=== PATIENT | male | born 1975 | race Caucasian/White ===

== ENCOUNTER 2017-12-26 10:35 | Observation (INO) ==
[2017-12-26] MEDS ORDERED: amLODIPine 5 MG TABLET PO ONE (10:57)
[2017-12-26] MEDS ORDERED: Aspirin 81 MG TAB.CHEW PO ONE (10:59)
--- NOTE | 2017-12-26 11:02 | Emergency Department Note ---
Disposition Clinical Impression: Euokg-Ugejssgnh-Pgfrz (WPW) pattern Chest pain Qualifiers: Chest pain type: other chest pain Qualified Code(s): R07.89 - Other chest pain Disposition: Admitted As Inpatient Condition: Good Referrals: Louisa Joya CAR FERRY CAPTAIN [Primary Care Provider] - Forms: ED Satisfaction Letter Time of Disposition: 13:10 General Adult HPI - General Chief complaint: ED Chest Pain Stated complaint: CP Time Seen by Provider: 12/26/17 10:46 Source: patient, family Limitations: no limitations Nursing Notes Reviewed: Yes Vital Signs Reviewed: Yes - History of Present Illness HPI Narrative: Palpitations and chest pain that radiates to his left shoulder as well as tingling in his left shoulder and left lower extremity. Complaining of intermittent blurry vision in his left eye. Generalized weakness. Has had this previously however resolved. No symptoms at this time other than generalized weakness. Pain Scale: 4 - Related Data Home Medications Medication Instructions Recorded Confirmed amLODIPine [Norvasc] 10 mg PO DAILY 12/26/17 12/26/17 Allergies Allergy/AdvReac Type Severity Reaction Status Date / Time No Known Allergies Allergy Verified 12/26/17 10:51 All systems ED: reviewed and negative except as stated. Constitutional: Reports: weakness. Denies: fever, chills Cardiovascular: Reports: chest pain (Intermittent), palpitations Respiratory: Denies: cough, dyspnea Gastrointestinal: Denies: abdominal pain, nausea, vomiting, diarrhea Musculoskeletal: Denies: back pain, neck pain Integumentary: Denies: rash, abrasion Neurological: Reports: weakness. Denies: headache Past Medical History - Past Medical History Attestation: Yes The following information was validated with the patient. Source: patient Medical history: Reports: hypertension Psychiatric history: Reports: no psych history - Social History Smoking Status: Never smoker Smokeless Tobacco Status: No Alcohol use: Reports: none Drug use: Reports: none Physical Exam - General Limitations: no limitations General appearance: alert, in no apparent distress - Head Head exam: atraumatic, normocephalic, normal inspection - Eye Eye exam: Present: normal appearance, PERRL, EOMI - ENT ENT exam: normal exam, normal oropharynx, mucous membranes moist - Neck Neck exam: Present: normal inspection, full ROM, trachea midline - Chest Chest inspection: Present: normal inspection, symmetric chest wall rise - Respiratory Respiratory exam: Present: normal lung sounds bilaterally. Absent: respiratory distress, accessory muscle use - Cardiovascular Cardiovascular exam: Present: regular rate, normal rhythm, normal heart sounds - Abdominal Exam Abdominal exam: Present: soft, Non-Tender. Absent: tenderness, distention, guarding, rebound, rigidity, organomegaly - Extremities Exam Extremities exam: Present: normal inspection, full ROM, normal capillary refill. Absent: tenderness, pedal edema - Back Exam Back exam: Present: normal inspection, full ROM. Absent: tenderness - Neurological Exam Neurological exam: Present: alert, oriented X3, CN II-XII intact, normal gait. Absent: motor sensory deficit - Expanded Neurological Exam Patient oriented to: Present: person, place, time Coma Scale Eye Opening: Spontaneous Coma Scale Motor Response: Obeys Commands Coma Scale Verbal Response: Oriented Coma Scale Total: 15 - Skin Skin exam: Present: warm, dry, intact, normal color Course Course Narrative: Male patient presenting to the emergency department complaining of left-sided chest pain is intermittent. Started last night. Also having associated feelings his heart is racing. No history of this. Is on medication for his blood pressure not taken this in 2 days because he ran out. He was supposed to get this refilled today. He takes amlodipine. We will provide a he is here. He states that he is not having any pain at this time. He just feels tired. No coughs or shortness of breath. Has occasional blurry vision in his left eye associated with this. This denies that it is a curtain or blindness. He states that it is just a blurriness. Has been seen for this previously by his eye doctor. He is neurologically intact at this time. NIH is 0. He also complains of tingling sensations in his left arm and left leg occasionally. We will provide patient with aspirin at this time. 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 He has no history of this. We have no previous EKG to compare to. We will get a troponin and basic lab workup inclusive of a chest x-ray. I anticipate admission for a new diagnosed arrhythmia. Vital Signs Temperature 98.2 F 12/26/17 10:39 Pulse Rate 85 12/26/17 10:39 Respiratory Rate 18 12/26/17 10:39 Blood Pressure 162/103 12/26/17 10:39 O2 Sat by Pulse Oximetry 97 12/26/17 10:39 Temperature 98.2 F 12/26/17 10:39 Pulse Rate 85 12/26/17 13:30 Respiratory Rate 20 12/26/17 13:30 Blood Pressure 157/83 12/26/17 13:30 O2 Sat by Pulse Oximetry 95 12/26/17 13:30 Oxygen Delivery Oxygen Delivery Room Air Medical Decision Making - Medical Records Medical records reviewed: Yes I reviewed the patient's medical records. - Lab Data Lab results reviewed: Yes I reviewed the patient's lab results. Result diagrams: 12/26/17 11:09 12/26/17 11:09 Lab Results 12/26/17 12/26/17 12/26/17 Range/Units 10:47 11:09 11:09 WBC 6.8 (4.3-11.1) K/mcL RBC 4.97 (4.19-5.50) M/mcL Hgb 16.0 (12.9-16.9) g/dL Hct 44.8 (37.5-50.1) % MCV 90.1 (83.0-100.0) fL MCH 32.2 (28.0-33.3) pg MCHC 35.7 H (31.6-35.5) g/dL RDW 12.2 (11.5-14.5) % Plt Count 158 (140-400) K/mcL MPV 11.3 (9.4-12.4) fL Immature Gran % 0.4 (0-4) % Seg Neutrophils % 69.9 % Lymphocytes % 13.3 % Monocytes % 14.2 % Eosinophils % 1.8 % Basophils % 0.4 % Neutrophils # 4.8 (1.6-8.9) K/mcL Lymphocytes # 0.9 (0.6-4.6) K/mcL Monocytes # 1.0 (0.0-1.3) K/mcL Eosinophils # 0.1 (0.0-0.6) K/mcL Basophils # 0.0 (0.0-0.2) K/mcL Platelet Estimate Normal (Normal) Sodium 138 (136-145) mEq/L Potassium 3.9 (3.5-5.1) mEq/L Chloride 104 (98-107) mEq/L Carbon Dioxide 26 (23-29) mEq/L BUN 10 (6-20) mg/dL Creatinine 0.90 (0.70-1.30) mg/dL Est GFR ( Amer) > 60 (> 60) Est GFR (Non-Af Amer) > 60 (> 60) BUN/Creatinine Ratio 11 (6-26) Glucose 115 H (70-105) mg/dL Calculated Osmolality 286 (280-300) Calcium 9.9 (8.6-10.3) mg/dL Troponin I < 0.03 (< 0.04) ng/mL - Radiology Data Radiology results reviewed: Yes I reviewed the patient's radiology results. Chest X-Ray 12/26/17 10:59 IMPRESSION: No focal consolidation. No acute process. Stable exam. D/ / Dale oWod MD / Dale Wood MD Interpreting Provider: Dale Wood MD - EKG Data EKG #1 EKG attestation: Yes I reviewed and interpreted this EKG. EKG results narrative: Sinus rhythm at a rate 83. RI interval is 14. This is shortened. QRS duration is 154. QT is 387. QTC is 427. No signs of acute ischemia. 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
--- NOTE | 2017-12-26 11:59 | Emergency Department Note ---
Disposition Clinical Impression: Chest pain Qualifiers: Chest pain type: other chest pain Qualified Code(s): R07.89 - Other chest pain ; R07.8 - Other chest pain Disposition: Still a Patient Forms: ED Satisfaction Letter General Adult HPI - General Chief complaint: ED Chest Pain Stated complaint: CP Time Seen by Provider: 12/26/17 10:46 Source: patient, family Limitations: no limitations - History of Present Illness Pain Scale: 5 - Related Data Home Medications Medication Instructions Recorded Confirmed amLODIPine [Norvasc] 10 mg PO DAILY 12/26/17 12/26/17 Allergies Allergy/AdvReac Type Severity Reaction Status Date / Time No Known Allergies Allergy Verified 12/26/17 10:51 Past Medical History - Past Medical History Medical history: Reports: hypertension Psychiatric history: Reports: no psych history - Social History Smoking Status: Never smoker Smokeless Tobacco Status: No Alcohol use: Reports: none Drug use: Reports: none Physical Exam - General Limitations: no limitations General appearance: alert, in no apparent distress Course - Reevaluation(s) Reevaluation #1: ATTESTATION NOTE I examined this patient and my medical decision-making was reviewed with the Resident Physician, Gio Benites to the extent set forth below. I have personally performed a face to face evaluation on this patient. I have reviewed and agree with the care plan. Briefly: 42-year-old male hypertensive is on has not been has been out of his Norvasc for several days comes in sinus tachycardia with an EKG that suggest WPW or another preexcitation syndrome. Patient will be getting IV meds fluids labs chest x-ray with admission anticipated. Provided 30 minutes of critical care service for this patient. Admission disposition pending Time: 11:57 Vital Signs Temperature 98.2 F 12/26/17 10:39 Pulse Rate 85 12/26/17 10:39 Respiratory Rate 18 12/26/17 10:39 Blood Pressure 162/103 12/26/17 10:39 O2 Sat by Pulse Oximetry 97 12/26/17 10:39 Temperature 98.2 F 12/26/17 10:39 Pulse Rate 85 12/26/17 11:09 Respiratory Rate 20 12/26/17 11:09 Blood Pressure 160/110 12/26/17 11:09 O2 Sat by Pulse Oximetry 97 12/26/17 11:17 Oxygen Delivery Oxygen Delivery Room Air
[2017-12-26 12:00] LABS: BUN/Creatinine Ratio 11 (6-26); Blood Urea Nitrogen 10 mg/dL (6-20); Calcium 9.9 mg/dL (8.6-10.3); Carbon Dioxide 26 mEq/L (23-29); Chloride 104 mEq/L (98-107); Glucose 115 mg/dL (70-105); Osmolality,Calculated 286 (280-300); Potassium 3.9 mEq/L (3.5-5.1); Sodium 138 mEq/L (136-145); eGFR For African Americans > 60 (> 60); eGFR For Non-African Americans > 60 (> 60)
[2017-12-26 12:13] LABS: Basophils % 0.4 %; Eosinophils # 0.1 K/mcL (0.0-0.6); Eosinophils % 1.8 %; Hematocrit 44.8 % (37.5-50.1); Immature Granulocytes % 0.4 % (0-4); Lymphocytes # 0.9 K/mcL (0.6-4.6); Lymphocytes % 13.3 %; Mean Corpuscular HGB Conc 35.7 g/dL (31.6-35.5); Mean Corpuscular Hemoglobin 32.2 pg (28.0-33.3); Mean Corpuscular Volume 90.1 fL (83.0-100.0); Mean Platelet Volume 11.3 fL (9.4-12.4); Monocytes % 14.2 %; Platelet Count 158 K/mcL (140-400); Red Blood Count 4.97 M/mcL (4.19-5.50); Red Cell Distribution Width 12.2 % (11.5-14.5); Segmented Neutrophils % 69.9 %
[2017-12-26 12:34] LABS: Neutrophils # 4.8 K/mcL (1.6-8.9)
[2017-12-26 12:35] LABS: Platelet Estimate Normal (Normal)
--- NOTE | 2017-12-26 14:34 | Internal Med History&Physical ---
Date of Encounter: 12/26/17 Time of Encounter: 14:31 Assessment and Plan (1) Chest pain Current visit: Yes Status: Acute Patient with cardiac risk factors of hypertension obesity with episode of chest pain need further cardiac evaluation scheduled for exercise stress test in a.m. 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 Ruano is a 42 year old male Patient with history of hypertension, obesity, presented emergency room with the chest pain describes as pressure going up to his left shoulder associated n or with shortness of breath and some lightheadedness also patient said he been having recurrent palpitation for several years that he felt he was due to anxiety he will get a sudden onset of palpitation his heart pounding and suddenly goes back to normal when he gets the episode he gets lightheaded and short of breath but never had any syncope episode. 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 Past Med Surg Social Fam HX - Past Medical History Medical history: hypertension Psychiatric history: no psych history - Social History Smoking Status: Never smoker Smokeless Tobacco Status: No Alcohol use: none Drug use: none Internal Medicine - H&P: Meds amLODIPine [Norvasc] 10 mg PO DAILY 12/26/17 [History] 3 Allergy/AdvReac Type Severity Reaction Status Date / Time No Known Allergies Allergy Verified 04/09/18 10:51 All Systems PM: A 10-system review of systems was performed and is negative for pertinent findings except as documented above in the HPI. - Constitutional Constitutional: no chills, no fever(s), no night sweats - EENT Eyes: no change in vision, no discharge, no pain, no photophobia Ears: no ear discharge, no ear pain, no tinnitus Nose, mouth and throat: no dysphagia, no nasal discharge, no neck pain, no sore throat - Cardiovascular Cardiovascular ROS IM: chest pain, dyspnea on exertion - Respiratory Respiratory: dyspnea, dyspnea on exertion - Gastrointestinal Gastrointestinal: no abdominal pain, no diarrhea, no hematemesis, no hematochezia, no melena, no nausea, no vomiting - Musculoskeletal Musculoskeletal ROS IM: no numbness, no tingling - Integumentary Integumentary IM: no rash, no unusual bruising - Neurological Neurological ROS: no confusion, no convulsions, no focal weakness, no numbness, no tingling, no tremor(s) - Constitutional Vitals: Temp Pulse Resp BP Pulse Ox 98.2 F 87 20 145/93 95 12/26/17 10:39 12/26/17 14:04 12/26/17 14:04 12/26/17 14:04 12/26/17 14:04 - Head Head exam: Present: atraumatic, normocephalic - Eye Eye exam: Present: PERRL, conjuntiva pink, sclera anicteric Pupils: Present: PERRL - Neck Neck exam general surgery: Present: supple, trachea midline. Absent: lymphadenopathy - Respiratory Respiratory exam: Present: CTAB. Absent: accessory muscle use, rales, rhonchi, wheezes - Cardiovascular Cardiovascular exam: Present: RRR, +S1, +S2. Absent: diastolic murmur, gallop, rubs, systolic murmur - GI/Abdominal GI/Abdominal exam: Present: normal bowel sounds, soft, no peritoneal signs. Absent: distended, tenderness - Extremities Exam Extremities exam: Present: warm, radial pulses palpable and symmetrical. Absent : calf tenderness, cyanotic, pedal edema - Neurological Exam Neurological exam: Present: CN II-XII intact, oriented X3, no focal deficits. Absent: pronater drift, facial droop, speech deficit - Skin Skin exam: Present: dry, intact Internal Med - H&P Results - Labs CBC & Chem 7: 12/26/17 11:09 12/26/17 11:09 Labs: Short CBC 12/26/17 Range/Units 11:09 WBC 6.8 (4.3-11.1) K/mcL Hgb 16.0 (12.9-16.9) g/dL Hct 44.8 (37.5-50.1) % Plt Count 158 (140-400) K/mcL Neutrophils # 4.8 (1.6-8.9) K/mcL BMP 12/26/17 11:09 Sodium 138 Potassium 3.9 Chloride 104 Carbon Dioxide 26 BUN 10 Creatinine 0.90 Glucose 115 H Calcium 9.9 Cardiac Enzymes 12/26/17 Range/Units 10:47 Troponin I < 0.03 (< 0.04) ng/mL - Impressions ITS Impressions Chest X-Ray 12/26/17 10:59 IMPRESSION: No focal consolidation. No acute process. Stable exam. D/ / Dale Wood MD / Dale Wood MD Interpreting Provider: Dale Wood MD
[2017-12-26] MEDS ORDERED: traMADol 50 MG TABLET PO PRN (14:39)
[2017-12-26] MEDS ORDERED: Acetaminophen 325 MG TABLET PO PRN (14:39)
[2017-12-26] MEDS ORDERED: Naloxone 0.4 MG/ML INJ IVP PRN (14:39)
--- NOTE | 2017-12-26 15:24 | Cardiology Consult Note ---
<Ran Abarca - Last Filed: 12/26/17 15:36> Date of Encounter: 12/26/17 Time of Encounter: 15:21 Assessment and Plan (1) Urboi-Qazdsujmm-Inhlp (WPW) pattern Current Visit: Yes Status: Acute Symptoms of palpitations, chest pain, lightheadedness. Resolved on presentation. EKG significant for bundle of sonido consistent with WPW. Plan: - Continue to monitor patient - agree with current plan: Echo and exercise stress test - NPO after midnight - consider ablation (2) Chest pain Current Visit: Yes Status: Acute Symptoms resolved at this time Most likely due to abnormal rhythm Plan: - As stated above Qualifiers: Chest pain type: other chest pain Qualified Code(s): R07.89 - Other chest pain; R07.8 - Other chest pain Discussion w patient/family: The assessment and plan as outlined above was discussed with the patient and/or family members who expressed understanding and agreement. All questions were answered. Thank you for involving us in the care of your patient. Please call with any questions. History of Present Illness Consult date: 12/26/17 Requesting physician: Maria T Galicia Consult reason: REINA; WPW Chief complaint: REINA History of present illness: Mr. Ruano is a 42 year old male with PMHx of hypertension and regular alcohol consumption presents to the ED for complaints of REINA, palpitations, lightheadedness, and left-sided paresthisias that started at 00:30 this morning. The patient states he woke up from sleep with palpitations and then throughout the morning he became SOB and lightheaded. He then intermittently felt tingling sensations in his left and right extremity. The patient states he has had similar symptoms before and thought they were panic attacks, however this time symptoms were more intense. He currently takes 10mg amilodipine for his blood pressure. Plan at this time is to order a stress test and echocardiogram. NPO at midnight. Patient may undergo ablation tomorrow if other testing is normal. Patient drinks 8-10 cans of beer daily. Past Med Surg Social Fam HX - Past Medical History Medical history: hypertension Psychiatric history: no psych history - Social History Smoking Status: Never smoker Smokeless Tobacco Status: No Alcohol use: none Drug use: none Medications and Allergies amLODIPine [Norvasc] 10 mg PO DAILY 12/26/17 [History] 3 Allergy/AdvReac Type Severity Reaction Status Date / Time No Known Allergies Allergy Verified 12/26/17 10:51 All Systems Review: The remainder of the systems were reviewed and are negative - EENT Eyes: blurred vision (resolved) - Cardiovascular Cardiovascular: diaphoresis, lightheadedness, palpitations - Respiratory Respiratory: dyspnea - Gastrointestinal Gastrointestinal: no nausea Physical Examination Vital Signs, Last 4 Hours Pulse Resp BP Pulse Ox 12/26/17 14:04 87 20 145/93 95 12/26/17 13:30 85 20 157/83 95 12/26/17 13:00 85 20 133/79 96 12/26/17 12:30 83 20 142/96 95 12/26/17 12:08 77 20 135/88 92 12/26/17 11:30 91 20 146/105 94 General: Conversant, No Apparent Distress HEENT: Atraumatic, Normocephaly, Mucus Membranes Moist Neck: No JVD, Normal carotid pulses Cardiac: Reg Rate and Rhythm, Normal S1 and S2, No Murmur Lungs: Normal Breath Sounds, No Wheeze, Rales, Rhonchi Neuro: Alert and responsive, No focal deficits noted Abdomen: Soft, Non-Tender Skin: No rashes noted on visualized skin Musculoskeletal: No Chest Wall Tenderness Extremities: No Clubbing, No Cyanosis, No Edema, Normal Pulses Results 12/26/17 11:09 12/26/17 11:09 Lab Results 12/26/17 12/26/17 12/26/17 10:47 11:09 11:09 WBC 6.8 Hgb 16.0 Hct 44.8 Plt Count 158 Sodium 138 Potassium 3.9 Chloride 104 Carbon Dioxide 26 BUN 10 Creatinine 0.90 Glucose 115 H Calcium 9.9 Troponin I < 0.03 - Imaging and Cardiology Chest Xray: image reviewed - EKG Interpretation EKG results cardiology: personally reviewed, sinus rhythm, no diagnostic ischemia, other (WPW) Consult Discharge Plan - Plan Referrals: Louisa Joya, PBX REPAIRER [Primary Care Provider] - <Dale Rios - Last Filed: 12/27/17 09:26> Date of Encounter: 12/26/17 Time of Encounter: 17:00 - Attending Attestation I examined this patient and my medical decision-making was reviewed with the Resident Physician. I agree with the documented findings, disposition and treatment plan as described except to the extent set forth below. CC: Heart racing Pt reports heart racing and skipping started around 12.:30 AM, occurred at rest as he was going to sleep, lasted several hours associated with mild diaphoresis , anxiety and shortness of breath, but was eventually able to go to sleep. He had recurrent episodes on and off throughout the day, with episode starting approx 2 pm, which did not resolve until seen in ED. At present he is not experiencing palpitations, chest pain or shortness of breath. He reports simiilar symptoms for many years, which come and go spontaneously, not associated with chest pain or pressure, not provoked by exercise or emotional upset, which improve if he sites down and tries to calm himself. His cardiac risk factors include hypertension and male gender. PMH: Hyptension PE: Agree with above. EKG: Preexcitation consistent with WPW IMP:' 1. Palpitations: secondary to SVT with WPW accessory pathway 2. Hypertension, not well controlled REC: 1. Echo 2. Treadmill cardiolyte stress 3. Consult EPS for possible WPW ablation 4. Monitor bp, may need to add GEOVANNA for better bp control. Further recommendations following cardiac imaging and EPS consult. Assessment and Plan Discussion w patient/family: The assessment and plan as outlined above was discussed with the patient and/or family members who expressed understanding and agreement. All questions were answered. Thank you for involving us in the care of your patient. Please call with any questions. History of Present Illness History of present illness: Mr. Ruano is a 42 year old male Past Med Surg Social Fam HX - Family History Father Hx Family Cardiac Disorders: Yes (HTN) All Systems Review: The remainder of the systems were reviewed and are negative Results 12/27/17 03:07 12/27/17 03:07 Lab Results 12/26/17 12/27/17 12/27/17 20:46 03:07 03:07 WBC 5.1 Hgb 15.2 Hct 44.1 Plt Count 216 Sodium Potassium Chloride Carbon Dioxide BUN Creatinine Glucose Calcium Magnesium Total Bilirubin AST ALT Alkaline Phosphatase Troponin I < 0.03 < 0.03 12/27/17 03:07 WBC Hgb Hct Plt Count Sodium 137 Potassium 4.2 Chloride 105 Carbon Dioxide 26 BUN 14 Creatinine 0.92 Glucose 99 Calcium 9.5 Magnesium 2.2 Total Bilirubin 0.7 AST 34 ALT 35 Alkaline Phosphatase 66 Troponin I
[2017-12-27 03:43] LABS: Basophils % 0.8 %; Eosinophils # 0.2 K/mcL (0.0-0.6); Eosinophils % 3.5 %; Hematocrit 44.1 % (37.5-50.1); Hemoglobin 15.2 g/dL (12.9-16.9); Immature Granulocytes % 0.2 % (0-4); Mean Corpuscular HGB Conc 34.5 g/dL (31.6-35.5); Mean Corpuscular Hemoglobin 31.8 pg (28.0-33.3); Mean Corpuscular Volume 92.3 fL (83.0-100.0); Mean Platelet Volume 10.1 fL (9.4-12.4); Monocytes # 0.8 K/mcL (0.0-1.3); Monocytes % 16.1 %; Neutrophils # 3.1 K/mcL (1.6-8.9); Platelet Count 216 K/mcL (140-400); Red Blood Count 4.78 M/mcL (4.19-5.50); Red Cell Distribution Width 12.4 % (11.5-14.5); Segmented Neutrophils % 59.4 %
[2017-12-27 04:01] LABS: Alanine Aminotransferase 35 Units/L (7-52); Albumin 4.2 g/dL (3.5-5.7); Albumin/Globulin Ratio 1.7 (1.1-2.2); Alkaline Phosphatase 66 Units/L (34-104); Aspartate Amino Transferase 34 Units/L (13-39); BUN/Creatinine Ratio 15 (6-26); Bilirubin,Total 0.7 mg/dL (0.3-1.0); Blood Urea Nitrogen 14 mg/dL (6-20); Calcium 9.5 mg/dL (8.6-10.3); Carbon Dioxide 26 mEq/L (23-29); Chloride 105 mEq/L (98-107); Chol/HDL Ratio 3.8 (0-4.9); Cholesterol 173 mg/dL (< 200); Globulin 2.5 g/dL (2.4-3.5); Glucose 99 mg/dL (70-105); HDL Cholesterol 45 mg/dL (40-59); LDL Cholesterol,Calculated 81 mg/dL (0-99); Magnesium 2.2 mg/dL (1.6-2.6); Osmolality,Calculated 285 (280-300); Potassium 4.2 mEq/L (3.5-5.1); Sodium 137 mEq/L (136-145); Total Protein 6.7 g/dL (6.4-8.9); Triglycerides 236 mg/dL (< 150); eGFR For African Americans > 60 (> 60); eGFR For Non-African Americans > 60 (> 60)
[2017-12-27] MEDS ORDERED: Regadenoson 0.4 MG/5 ML SYRINGE IVP ONE (07:50)
--- NOTE | 2017-12-27 08:13 | Electrophysiology Consult Note ---
<Rogelio Castillo - Last Filed: 12/27/17 08:30> Date of Encounter: 12/27/17 Time of Encounter: 08:10 Assessment and Plan (1) Jqnco-Sifshywfq-Ligxa (WPW) pattern Current Visit: Yes Status: Acute Per EP: ECG with RBBB and WPW pattern. TSH and Mag ok. No events noted on tele. Echo and ST pending. Will review and discuss with Dr. Brian Patiño. (2) Chest pain Current Visit: Yes Status: Acute Per EP: Troponins negative 4. Stress test pending. Echo pending. Qualifiers: Chest pain type: other chest pain Qualified Code(s): R07.89 - Other chest pain; R07.8 - Other chest pain (3) EtOH dependence Current Visit: Yes Status: Acute Per EP: Drinks 8-12 beers daily for the past 20 years. Consider [facility] protocol. Qualifiers: Substance use status: unspecified alcohol-induced disorder Qualified Code(s ): F10.29 - Alcohol dependence with unspecified alcohol-induced disorder Discussion w patient/family: The assessment and plan as outlined above was discussed with the patient who expressed understanding and agreement. All questions were answered. Thank you for involving us in the care of your patient. Please call with any questions. History of Present Illness Consult date: 12/27/17 Requesting physician: Dale Rios Consult reason: WPW Pattern Chief complaint: Palps History of present illness: Mr. Ruano is a 42 year old male the relevant past medical history of hypertension and alcohol abuse. 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 Patient seen today during stress test. Patient reports history of episodes of rapid heart rates and palpitations intermittently in the past 20 years. Patient presents to the hospital with concerns of palpitations with left-sided pain and tingling to left arm with dizziness. He denies any syncope or falls. Denies any active bleeding or blood loss. Reports drinks 8-12 beers daily for the past 20 years. Denies any known history of CAD. Denies any first-degree relatives with CAD. Denies any nicotine abuse. Past Med Surg Social Fam HX - Past Medical History Attestation: Yes The following information was validated with the patient. Source: patient, old records reviewed Medical history: hypertension Psychiatric history: no psych history - Social History Smoking Status: Never smoker Smokeless Tobacco Status: No Alcohol use: heavy Drug use: none - Family History Father Hx Family Cardiac Disorders: Yes (HTN) Medications and Allergies amLODIPine [Norvasc] 10 mg PO DAILY 12/26/17 [History] 3 Allergy/AdvReac Type Severity Reaction Status Date / Time No Known Allergies Allergy Verified 12/26/17 10:51 All Systems Review: The remainder of the systems were reviewed and are negative - Cardiovascular Cardiovascular: as per HPI, chest pain at rest, lightheadedness, palpitations, rapid heart rate Physical Examination Selected Entries 12/27/17 03:53 Temperature 97.4 F L Pulse Rate 70 Respiratory Rate 15 Blood Pressure 113/67 O2 Sat by Pulse Oximetry 98 Oxygen Delivery Method Room Air General: Conversant, No Apparent Distress HEENT: Atraumatic, Normocephaly, Mucus Membranes Moist Neck: No JVD, Normal carotid pulses Cardiac: Reg Rate and Rhythm, Normal S1 and S2, No Murmur Lungs: Normal Breath Sounds, No Wheeze, Rales, Rhonchi Neuro: Alert and responsive, No focal deficits noted Abdomen: Soft, Non-Tender Skin: No rashes noted on visualized skin Musculoskeletal: No Chest Wall Tenderness Extremities: No Clubbing, No Cyanosis, No Edema, Normal Pulses Results 12/27/17 03:07 12/27/17 03:07 Lab Results Laboratory Tests 05/21/17 12/26/17 12/26/17 11:04 10:47 14:57 Magnesium AST ALT Troponin I < 0.03 < 0.03 LDL Cholesterol, Calc TSH 1.614 12/26/17 12/27/17 12/27/17 20:46 03:07 03:07 Magnesium 2.2 AST 34 ALT 35 Troponin I < 0.03 < 0.03 LDL Cholesterol, Calc 81 TSH ITS Impressions Chest X-Ray 12/26/17 10:59 IMPRESSION: No focal consolidation. No acute process. Stable exam. D/ / Dale Wood MD / Dale Wood MD Interpreting Provider: Dale Wood MD Active Medications Acetaminophen (Tylenol) 650 mg PO Q6HR PRN PRN Reason: Mild Pain/Fever Stop: 06/27/18 14:40 Amlodipine Besylate (Norvasc) 10 mg PO DAILY LARS PRN Reason: Protocol Stop: 06/28/18 09:01 Naloxone HCl (Narcan) 0.4 mg IVP Q2MIN PRN PRN Reason: SEE COMMENTS Stop: 06/27/18 14:40 Tramadol HCl (Ultram) 50 mg PO Q6HR PRN PRN Reason: Moderate Pain Stop: 06/27/18 14:40 - Imaging and Cardiology Stress Test: pending (WPW pattern) Echo: pending - EKG Interpretation EKG results cardiology: personally reviewed, right bundle branch block, other ( Plan to review with average heart rate 72 the past 12 hours, no significant events noted) Consult Discharge Plan - Plan Referrals: Louisa Joya, [facility] [Primary Care Provider] - <Brian Patiño - Last Filed: 12/27/17 14:48> Date of Encounter: 12/27/17 - Attending Attestation I have personally performed a face to face evaluation on this patient. I have reviewed and agree with the care plan. History and Exam by me shows: Admitted with chest pain, noted to have WPW on EKG. Would complete cardiac workup, remainder of EP evaluation can be done as outpt. Assessment and Plan Discussion w patient/family: The assessment and plan as outlined above was discussed with the patient and/or family members who expressed understanding and agreement. All questions were answered. Thank you for involving us in the care of your patient. Please call with any questions. History of Present Illness History of present illness: Mr. Ruano is a 42 year old male All Systems Review: The remainder of the systems were reviewed and are negative Physical Examination Vital Signs, Last 4 Hours Temp Pulse Resp BP Pulse Ox 12/27/17 11:44 97.9 F 69 16 137/88 96 Results 12/27/17 03:07 12/27/17 03:07 Lab Results 12/26/17 12/27/17 12/27/17 20:46 03:07 03:07 WBC 5.1 Hgb 15.2 Hct 44.1 Plt Count 216 Sodium Potassium Chloride Carbon Dioxide BUN Creatinine Glucose Calcium Magnesium Total Bilirubin AST ALT Alkaline Phosphatase Troponin I < 0.03 < 0.03 12/27/17 03:07 WBC Hgb Hct Plt Count Sodium 137 Potassium 4.2 Chloride 105 Carbon Dioxide 26 BUN 14 Creatinine 0.92 Glucose 99 Calcium 9.5 Magnesium 2.2 Total Bilirubin 0.7 AST 34 ALT 35 Alkaline Phosphatase 66 Troponin I
--- NOTE | 2017-12-27 12:07 | Event Note ---
Date of Encounter: 12/27/17 Time of Encounter: 12:00 - Cardiology Event Note Echo showed EF preserved 60%, mild diastolic dysfunction, no significant valvular dysfunction, ascending aorta upper limits of normal at 3.9 cm, no segmental wall motion abnormalities. Stress test results reviewed with no perfusion evidence of ischemia, however fixed perfusion defect in the basal inferior septal of which prior infarct cannot be excluded. Patient also noted to have hypertensive blood pressure response and ECG with [address] depression in inferior and inferior lateral leads as well as [address] elevation in lead aVR. Discussed and reviewed with Dr. Rios and Dr. Gabbi Patiño. Patient and family agreeable to left heart catheterization today. Further recommendations after catheterization.
[2017-12-27] MEDS ORDERED: 0.9 % Sodium Chloride 1,000 ML ONE ×2 (12:48→13:34)
[2017-12-27] MEDS ORDERED: *HR* Heparin 10,000 UNIT/10 ML VIAL ONE (12:48)
[2017-12-27] MEDS ORDERED: ISOVUE-370 200 ML INFUS..BTL IV ONE (12:48)
[2017-12-27] MEDS ORDERED: Nitroglycerin 1,000 MCG/10 ML VIAL IV ONE (12:48)
[2017-12-27] MEDS ORDERED: Heparin 1,000 UNITS/500 mL 500 ML ONE (12:48)
[2017-12-27] MEDS ORDERED: *HR* Midazolam HCl 2 MG/2 ML VIAL ONE (13:34)
[2017-12-27] MEDS ORDERED: *HR* FentaNYL (PF) 100 MCG/2 ML VIAL ONE (13:34)
--- NOTE | 2017-12-27 13:37 | Pre-Sedation Evaluation ---
Pre-sedation evaluation - Pre-sedation checklist Date of procedure: 12/27/17 Procedure: left heart cath Recent Vitals: Last Vital Signs Temp 97.9 F 12/27/17 11:44 Pulse 69 12/27/17 11:44 Resp 16 12/27/17 11:44 BP 137/88 12/27/17 11:44 Pulse Ox 96 12/27/17 11:44 H&P (including ROS) documented in medical record: Yes Previous reaction to sedatives/anesthetics: Unknown Dietary Status: NPO after Midnight Airway Assessment: Patient can open mouth completely, TMJ function normal, Micrognathia (under-bite, receding chin) absent, Neck with adequate range of motion Dentition: No loose teeth or bridges Possible difficult airway: No ASA Classification *see protocol: CLASS II-Mild systemic disease Plan of Care: Pt appropriate candidate for procedure/moderate/conscious sedation , Risks/benefits of procedure/sedation discussed w/ patient/family
--- NOTE | 2017-12-27 14:19 | Event Note ---
Date of Encounter: 12/27/17 Time of Encounter: 14:17 - Cardiology Event Note LHC with minimal disease. No intervention. Cardiology/EP signing off. Reconsult PRN. Follow-up as outpt with EP for his WPW. Will coordinate.
--- NOTE | 2017-12-27 14:21 | Invasive Diagnostic Lab Proc ---
Name: Hood Ruano Date of Study: 12/27/2017 Date: 1975 Ht: 72.0in Medical Record#: [id number] Age: 42 Wt: 262.57lb Gender: Male BSA: 2.39 Order #: [id number] BMI: 35.6 Physicians Procedure Physician: Gabbi Patiño MD, [facility] Referring MD: Referring MD: Staff Name Position Time In Sites, Coral RT (R) Scrub 01:20 PM Machelle Fisher RT (R) Monitor 01:20 PM Saige Gray RN Dialysis Patient Care Technician 01:21 PM Indications Indication Abnormal Test - Stress Procedures Performed Procedure L HRT ARTERY/VENTRICLE ANGIO Pre-Procedure Checklist Informed consent is complete signed and on chart. H&P is on chart. ID band is on and ID verified with patient. Patient NPO for procedure The procedure was described for the patient and questions were answered. Blood Pressure: 137/88 ECG is on chart. Plan of Care Patient will tolerate the procedure without complications. Adequate level of comfort will be maintained. Hemodynamics will remain stable Patient will recover from procedure without complications. Respiratory function will be maintained. Cardiac rhythm will remain stable. Patient temperature will be maintained. Patient and/or family have verbalized understanding of the procedure. Patient Education Chief Complaint/Reason for Test: Cardiac Cath Developmental Category: Adult (18-64 years) Developmentally Appropriate for Age: Yes Learning Barriers: None Education Needs: Procedure Education Method: Verbal Information Taught: Cardiac Cath Educational Evaluation: Able to repeat information Intravenous Access Time IV Size Location DC'd Fluid/Drip Rate Units RN 12:36 PM 18g 1 09/22" Patent On Arrival Lt Antecubital Saige Gray RN Allergies NKMA No Known Allergies Vital Signs Time BP (mmHg) HR (bpm) O2 Sat. RR (bpm) LOC 12:36 PM 137 / 88 69 % 16 5 = Fully awake and oriented or at pre-proc level 01:34 PM / % 5 = Fully awake and oriented or at pre-proc level 01:34 PM / % 5 = Fully awake and oriented or at pre-proc level 01:35 PM 160 / 100 70 100 % 01:39 PM 154 / 97 83 100 % 01:45 PM 144 / 94 76 98 % 01:49 PM 150 / 95 75 98 % 01:55 PM 149 / 95 81 98 % 02:00 PM 153 / 100 99 98 % 02:05 PM 145 / 101 78 99 % 01:49 PM / % 5 = Fully awake and oriented or at pre-proc level Procedural Medications Time Medication Dose Units Method Given By 01:33 PM Oxygen 2 L/min nasal cannula Saige Gray RN 01:40 PM Versed 2 mg Intravenous Saige Gray RN 01:40 PM Fentanyl 50 mcg Intravenous Saige Gray RN 01:47 PM Benadryl 25 mg Intravenous Saige Gray RN 01:47 PM Lidocaine 2% 19 ml Subcutaneous Gabbi Patiño MD, [facility] ASA Classification: CLASS II- Mild systemic disease (i.e. well-controlled diabetes, hypertension, asthma, cigarette smoking) Charbel Score Preprocedure Postprocedure Activity 2- Moves 4 extremities sustained head lift Activity 2- Moves 4 extremities sustained head lift Circulation 2- SBP +/= 20 points of pre-anesthetic level Circulation 2- SBP +/= 20 points of pre-anesthetic level Consciousness 2- Awake and alert oriented x 3 Consciousness 2- Awake and alert oriented x 3 O2 Saturation 2- Able to maintain O2 satruation of 92% on room air O2 Saturation 2- Able to maintain O2 satruation of 92% on room air Respiratory 2- Able to deep breathe and cough well Respiratory 2- Able to deep breathe and cough well Total Score 10 Total Score 10 Contrast Agent: Isovue Diagnostic Contrast: 70 ml Total Contrast: 70 ml Fluoro Dose: 236 mGy Procedure Log Time Note Enter By 01:20 PM Coral Mosqueda RT (R) Position: Scrub Time in: 13:20 : PM Machelle Fisher RT (R) Position: Monitor Time in: 13:20 :21 PM Saige Gray RN Position: Dialysis Patient Care Technician Time in: 13:21 :21 PM Patient charges- Angio tray pack, Navilyst 3mm J, Pulse Oximetry and ACIST tubing and transducer :21 PM IV Supplies used: J loop Angio Cath. 01:24 PM Pt arrived to pharmacy laboratory technician 2 at 13:24 dsp 01:24 PM CathStat 01:25 PM Physican paged/called 13:24. 01:33 PM Meet and greet completed :33 PM Sign in performed according to hospital policy. :33 PM Procedure start 13:33 :33 PM Time: 13:33 Oxygen on at 2 L/min per nasal cannula by Saige Gray RN :34 PM Time: 13:33 Patient comfortable and pain free: Yes 34 PM Time: 13:34LOC: 5 = Fully awake and oriented or at pre-proc level :34 PM Vitals capture started with the following parameters, Patient=Adult, Interval=5 min, Initial Olkzxpwo=238 mmHg, Deflation Rate=5 mmHg, Cuff placed on Right Arm 01:35 PM HR=70 bpm, ICGH=090/100 mmhg, RzZ7=351.0 %, Comment=NSR 01:39 PM HR=83 bpm, XOEZ=998/97 mmhg, FkO8=123.0 %, Comment=NSR :40 PM Time: 13:40 Versed 2 mg Intravenous Given by Saige Gray RN :40 PM Time: 13:40 Fentanyl 50 mcg Intravenous Given by Saige Gray RN :41 PM ASA Class CLASS II- Mild systemic disease (i.e. well-controlled diabetes, hypertension, asthma, cigarette smoking) :43 PM Hair removed from procedure site in holding area using clippers. Bilateral groin prepped with Chloraprep by Machelle Fisher (R), then patient was draped. Skin intact. :45 PM HR=76 bpm, LBYZ=775/94 mmhg, SpO2=98.0 %, Comment=NSR :45 PM Case Start :45 PM Time out performed according to hospital policy :46 PM Clinical Presentation: Unstable angina :47 PM Time: 13:47 Benadryl 25 mg Intravenous Given by Saige Gray RN :49 PM Time: 13:34LOC: 5 = Fully awake and oriented or at pre-proc level 49 PM Time: 13:34 Patient comfortable and pain free: Yes 49 PM Time: 13:47 19 ml Lidocaine 2% to right groin Subcutaneous Given by Gabbi Patiño MD, [facility] dspellman 01:49 PM HR=75 bpm, FRMG=613/95 mmhg, SpO2=98.0 %, Comment=NSR 01:50 PM Access obtained by percutaneous puncture. 5Fr 10cm Terumo [place] sheath placed in right Femoral artery. [id number] dspellman 01:51 PM 5Fr FL 4 catheter inserted over the wire DN dspellman 01:51 PM Pressure channel 1 zeroed. 01:52 PM Recorded Pressure: Ao, HR=76, Condition=Condition 1 (Aorta) Ao 104/98/101 01:52 PM LCA angiography performed in multiple views. dspellman 01:53 PM Catheter removed dspellman 01:53 PM 5Fr FR 4 catheter inserted over the wire DN dspellman 01:54 PM RCA angiography performed in multiple views. dspellman 01:54 PM Recorded Pressure: Ao, HR=81, Condition=Condition 1 (Aorta) Ao 117/113/115 01:55 PM HR=81 bpm, IYPN=600/95 mmhg, SpO2=98.0 %, Comment=NSR 01:55 PM Catheter removed dspellman 01:55 PM 5Fr Pigtail catheter inserted over the wire DN dspellman 01:55 PM 0.035 145cm Navilyst 3mmJ wire [id number] dspellman 01:55 PM Catheter selectively placed in left ventricle dspellman 01:55 PM Bolus angiogram of left Ventricle complete: 8 ml/sec for a total of 24 mls dspellman 01:56 PM Pressure channel 1 zeroed. 01:59 PM Recorded Pressure: Ao, HR=86, Condition=Condition 1 (Aorta) Ao 108/85/96 02:00 PM HR=99 bpm, VCFX=501/100 mmhg, SpO2=98.0 %, Comment=NSR 02:00 PM Bolus angiogram of right Femoral complete: 8 ml/sec for a total of 24 mls dspellman 02:00 PM Catheter removed dspell 02:02 PM Procedure completed at 14:02 dspellman 02:02 PM Did you address PAOLA flow and Dominance? Yes dspellman 02:02 PM Sign out completed: Radiation Dose 235.71 mGy Fluoro Time: 2.2 Isovue 370 - 200ml contrast 69.5 ml given by Gabbi Patiño MD, [facility]. Complications: NoneCardiac Rehab Consult needed: NoConfirmed administered medications: Yes 02:02 PM Isovue 370 - 200ml,1 Bottle(s) used. dsp 02:03 PM Arterial sheath pulled, Mynx closure device used and was Successful [id number] S/N. dspell 02:03 PM Estimated Blood Loss: minimal dspell 02:03 PM Post ECG NSR dspell 02:03 PM Post Blood Pressure 153/100 dspell 02:03 PM Information taught Cardiac Cath and Mynx dspell 02:03 PM Education needs Procedure, Plan of Care, and Responsibilities of Patient in Care dspell 02:03 PM Learning barriers :None 02:04 PM Education Methods Verbal :04 PM Education evaluation Able to repeat information : PM Site status No bleeding/hematoma - Rt Groin as reported by Sites, Coral RT (R) at 14:04 dsp 02:04 PM Opsite applied dsp 02:04 PM Time: 13:49 Patient comfortable and pain free: Yes :04 PM Time: 13:49LOC: 5 = Fully awake and oriented or at pre-proc level dsp 02:05 PM HR=78 bpm, EEGM=602/101 mmhg, SpO2=99 % 02:05 PM Family placed in no family available. 02:06 PM Complications: None 02: PM Fluoro Time: 2.2 dsp 02:06 PM Isovue 370 - 200ml contrast 69.[address] Gabbi Patiño. 02:06 PM Radiation Dose 235.71 mGy 02:08 PM Report given to Yohana GARCIA Pt taken to Room #24. 14:08 dsp 02:09 PM Coronary Dominance: right dspell 02:09 PM Lesion found in Proximal LAD. Pre Stenosis: 20 Pre PAOLA Flow: dspell 02:09 PM Lesion found in Mid LAD. Pre Stenosis: 15 Pre PAOLA Flow: dspell 02:10 PM Lesion found in Proximal RCA. Pre Stenosis: 20 Pre PAOLA Flow: dspellman Complications Complication None None Hemodynamics Pressures Site Systolic/A Wave Diastolic/V Wave Mean AO 104 98 101 AO 117 113 115 AO 108 85 96 Post Procedure Information Blood Pressure: 153/100 mmHg Rhythm: NSR Post procedural instructions were given Closure Device Time Device Success/Fail 12/27/2017 2:08:00 PM MynxGrip Successful Site Checks Time Location Status Staff Sheath In? Note 02:04 PM Rt Groin No bleeding/hematoma Sites, Coral RT (R) Pulses Time Site Pre-Procedure Post-Procedure Note 12/27/2017 12:36:00 PM Bilateral DP & PT 2+ Updated by Machelle Fisher, RT (R) on 12/27/2017 2:11:59 PM Machelle Fisher RT electronically signed on 12/27/2017 2:15:51 PM with status of Final
[2017-12-27] MEDS: amLODIPine 5 MG TABLET PO SCH (15:17)
--- NOTE | 2017-12-27 16:03 | Internal Med Progress Note ---
Date of Encounter: 12/27/17 Time of Encounter: 10:25 - Assessment and plan (1) Chest pain Current Visit: Yes Status: Acute Assessment and plan: Patient denies chest pain. Denies chest pain since arrival. LVEF 60%, mild LV DD, no significant valvular dysfunction. Nuclear stress test was negative, possible evidence of prior infarct, prior infarct could not be excluded. Exercise ECG was positive for ischemia and is resting ECG demonstrated WPW pattern. Patient had an C today, showed minimal disease. There was no intervention. Cardiology has signed off. They will follow up in the office for his WPW. Qualifiers: Chest pain type: other chest pain Qualified Code(s): R07.89 - Other chest pain; R07.8 - Other chest pain (2) EtOH dependence Current Visit: Yes Status: Acute Assessment and plan: Patient drinks 8-12 beers daily for 20 years. We will start CIWA scale. Qualifiers: Substance use status: unspecified alcohol-induced disorder Qualified Code(s ): F10.29 - Alcohol dependence with unspecified alcohol-induced disorder (3) Hypertension Current Visit: Yes Status: Acute Assessment and plan: Well-controlled. Continue home medications. Continue telemetry and to monitor vital signs as ordered. Qualifiers: Hypertension type: essential hypertension Qualified Code(s): I10 - Essential (primary) hypertension (4) Wiirg-Kuuldhbfo-Dgzsd (WPW) pattern Current Visit: Yes Status: Acute Assessment and plan: Baebs-Mdtnrjtht-Sfisp demonstrated on EKG as well as during nuclear stress test. TSH and mag were within normal limits. Echo with preserved EF, no valvular dysfunction. Stress test was negative. Cardiology has signed off and will continue to follow patient in the office. They will coordinate. (5) Obesity Current Visit: Yes Status: Chronic Assessment and plan: Chronic. Encouraged lifestyle modifications including exercise increase calorie decrease. Qualifiers: Obesity type: due to excess calories Obesity classification: unspecified obesity classification Serious obesity comorbidity presence: unspecified whether serious comorbidity present Qualified Code(s): E66.09 - Other obesity due to excess calories (6) DVT prophylaxis Current Visit: Yes Status: Acute Assessment and plan: Patient is ambulatory. Continue to encourage ambulation. - Time Spent With Patient Total time spent is greater than 50% in coordination of care (as documented) at patient's floor/unit and/or counseling patient: less than 15 minutes - Subjective Interval history: Patient was seen and assessed at 10:25 AM. He is alert, awake, oriented. He denies chest pain, shortness breath, nausea, vomiting, diaphoresis, diarrhea. No abdominal pain or chest pain. He denies chest pain since arrival. He reports having episodes of what he felt was anxiety for at least 20 years. 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 Patient is a nonsmoker, drinks alcohol daily. - Constitutional Vitals: Temp Pulse Resp BP Pulse Ox 97.9 F 69 16 137/88 96 12/27/17 11:44 12/27/17 11:44 12/27/17 11:44 12/27/17 11:44 12/27/17 11:44 General appearance: Present: cooperative, A&O X 3, pleasant, no acute distress, answers questions appropriately - Head Head exam: Present: atraumatic, normal inspection, normocephalic - Eye Eye exam: Present: normal appearance, conjuntiva pink, sclera anicteric - Neck Neck exam general surgery: Present: supple, trachea midline. Absent: lymphadenopathy - Respiratory Respiratory exam: Present: CTAB. Absent: accessory muscle use, rales, rhonchi, wheezes - Cardiovascular Cardiovascular exam: Present: RRR, +S1, +S2. Absent: diastolic murmur, gallop, rubs, systolic murmur - GI/Abdominal GI/Abdominal exam: Present: normal bowel sounds, soft. Absent: distended, hepatomegaly, tenderness - Extremities Exam Extremities exam: Present: normal capillary refill, normal inspection, warm, radial pulses palpable and symmetrical. Absent: calf tenderness, cyanotic, pedal edema, tenderness - Neurological Exam Neurological exam: Present: alert, oriented X3, no focal deficits. Absent: facial droop, speech deficit - Skin Skin exam: Present: dry, intact, normal color, warm. Absent: rash Internal Medicine: Result - Labs CBC & Chem 7: 12/27/17 03:07 12/27/17 03:07 Labs: Short CBC 12/27/17 Range/Units 03:07 WBC 5.1 (4.3-11.1) K/mcL Hgb 15.2 (12.9-16.9) g/dL Hct 44.1 (37.5-50.1) % Plt Count 216 (140-400) K/mcL Neutrophils # 3.1 (1.6-8.9) K/mcL BMP 12/27/17 03:07 Sodium 137 Potassium 4.2 Chloride 105 Carbon Dioxide 26 BUN 14 Creatinine 0.92 Glucose 99 Calcium 9.5 Cardiac Enzymes 12/26/17 12/27/17 Range/Units 20:46 03:07 Troponin I < 0.03 < 0.03 (< 0.04) ng/mL Liver Function 12/27/17 Range/Units 03:07 Total Bilirubin 0.7 (0.3-1.0) mg/dL AST 34 (13-39) Units/L ALT 35 (7-52) Units/L Alkaline Phosphatase 66 (34-104) Units/L Albumin 4.2 (3.5-5.7) g/dL Consult Discharge Plan - Plan Referrals: Louisa Joya, HEAD OF MAINTENANCE [Primary Care Provider] -
--- NOTE | 2017-12-27 22:56 | Electrocardiograph Report ---
[facility] Test Date: 2017-12-26 Pat Name: Hood Ruano Department: 103 Room: 3B24 Gender: Movie Extra: : 1975 Requested By: Ana Sahni Order Number: [id number] Reading MD: Glory Candelario Measurements Intervals [place] Rate: 83 P: 41 CT: 104 QRS: -30 QRSD: 154 T: 120 QT: 387 QTc: 427 Interpretive Statements SINUS RHYTHM WITH SHORT CT INTERVAL VENTRICULAR PREEXCITATION/WPW WARNING: DATA QUALITY MAY AFFECT INTERPRETATION Electronically Signed On 12-27-2017 22:55:13 EDT by Glory Candelario
[2017-12-28 06:57] VITALS: BP 106/58
--- NOTE | 2017-12-28 07:49 | Discharge Summary ---
- NOTES TO OUTPATIENT PROVIDER Notes to Outpatient Provider: Pt had LHC 12/27, minimal atherosclerotic CAD noted , recommend aggressive risk factor modification. Pt also has been encouraged to stop drinking alcohol daily and I have started him on fish oil BID for triglycerides of 236. We discussed lifestyle changes and exercise. Recommend recheck lipid panel in 6 mos. Date of Encounter: 12/28/17 Time of Encounter: 08:50 - Discharge Diagnosis (1) Chest pain Priority: Primary Status: Acute Comments: She denies chest pain today. No shortness of breath. LHC yesterday showed minimal atherosclerotic CAD with an LVEF of 65%. Recommend aggressive risk factor modifications. Patient has been started on fish oil supplements for elevated triglycerides. I recommended the patient modify his diet, and exercise , stop drinking. Recommend patient follow up with primary care and redraw lipid panel in 6 months. Qualifiers: Chest pain type: other chest pain Qualified Code(s): R07.89 - Other chest pain; R07.8 - Other chest pain (2) EtOH dependence Priority: Secondary Status: Chronic Comments: Patient reports drinking 8-12 beers daily. He states that it is habit. He does not agree that he is dependent on alcohol, however, he states that he knows he needs to quit. I have provided him with a packet from her mental health unit regarding alcohol cessation. Qualifiers: Substance use status: unspecified alcohol-induced disorder Qualified Code(s ): F10.29 - Alcohol dependence with unspecified alcohol-induced disorder (3) Hypertension Priority: Secondary Status: Acute Comments: Well-controlled. Chronic. Continue home medication. Qualifiers: Hypertension type: essential hypertension Qualified Code(s): I10 - Essential (primary) hypertension (4) Jailu-Mgdeorgoq-Eerjl (WPW) pattern Priority: Secondary Status: Acute Comments: Patient will follow up with cardiology in the office. He denies chest pain or palpitations. (5) Obesity Priority: Secondary Status: Chronic Comments: Chronic. We discussed lifestyle modifications including diet, exercise, alcohol cessation. Patient was in agreement Qualifiers: Obesity type: due to excess calories Obesity classification: unspecified obesity classification Serious obesity comorbidity presence: unspecified whether serious comorbidity present Qualified Code(s): E66.09 - Other obesity due to excess calories (6) DVT prophylaxis Priority: Secondary Status: Acute Comments: Patient has been ambulatory. Hospital course: Mr. Ruano is a 42 year old male with past medical history of hypertension, obesity. He presented to the emergency department with chest pain that he described as a pressure radiating from left chest in the left shoulder with associated shortness of breath and some lightheadedness. Patient reports approximately 20 year history of palpitations that he attributed to anxiety. He reports the onset of palpitations, heart pounding, was sudden resolution. He does get lightheaded and short of breath with the episodes, but never had a syncopal episode. 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 Cardiology and EP were consulted. He has had no chest pain or above listed symptoms since prior to arrival. Troponins were negative 4, chest x-ray negative. Echo showed an LVEF of 60% with mild LV DD, no significant valvular dysfunction. Patient had an LHC on 12/27 that showed minimal atherosclerotic coronary artery disease with an LVEF of 65%. Cardiology has recommended aggressive risk factor modification, patient and I discussed these. He is a nonsmoker, he does drink 8-12 beers daily and states that he knows that he needs to stop. He has been given a packet of information on alcohol cessation and resources. Patient reports healthy diet other than weight gain from daily beer. He reports he may have a familial component with the hyperlipidemia, states his father had high cholesterol problems. I started him on fish oil and we discussed lifestyle modifications. Patient was in agreement. His vitals and labs are stable and within normal limits and he is appropriate for discharge. Discharge discussed with: patient, nurse - Time Spent with Patient Total time spent providing and/or coordinating discharge services: Less than 30 minutes - Discharge Medications Prescriptions: [place]-3/Dha/Epa/Fish Oil [Fish Oil [place]-3 EC 1,200 mg] 1 each PO BID #60 capsule.dr Cohen Medications: amLODIPine [Norvasc] 10 mg PO DAILY 12/26/17 [History] [place]-3/Dha/Epa/Fish Oil [Fish Oil [place]-3 EC 1,200 mg] 1 each PO BID #60 capsule. 12/28/17 [Rx] Allergies/Adverse Reactions: 3 Allergy/AdvReac Type Severity Reaction Status Date / Time No Known Allergies Allergy Verified 12/26/17 10:51 Date of admission: 12/26/17 16:38 Primary care physician: Louisa Joya CNP Consults: 12/27/17 08:11 Consult to Electrophysiology (EP) [CONS] Routine Consulting Provider: Electrophysiology Sylvie Reason for Consult: WPW Call Completed: Yes Discharging clinician: Alexus Toth Anticipated date of discharge: 12/28/17 - Constitutional Vitals: Temp Pulse Resp BP Pulse Ox 98.2 F 86 16 106/58 97 12/28/17 06:56 12/28/17 06:56 12/28/17 06:56 12/28/17 06:56 12/28/17 06:56 General appearance: Present: cooperative, A&O X 3, pleasant, no acute distress, answers questions appropriately - Patient Status Disposition: Home, Self-Care Condition: Good Functional capacity at discharge: independent ambulation Overall status at discharge: patient is back to baseline - Discharge Instructions Follow Up With: Louisa Joya CNP [Primary Care Provider] - 01/05/18 11:00 am Additional Instructions: Please try to stop drinking. Please look through the packet of information that you have been provided and consider some of the options. Follow up with your PCP in the next 7-10 days for a recheck. Return to your normal activities and diet as tolerated. Resume your normal medications. Your triglycerides are elevated, take your fish oil supplements, add exercise, and diet modifications and have your level rechecked in 6 months. - Diet and Activity Activity: increase activity as tolerated Diet: advance to your usual diet
[2017-12-28] MEDS: amLODIPine 5 MG TABLET PO SCH (09:00)
== END 2017-12-28 10:45 | disposition home or self-care (01) ==
LOC: 3BNU 10:35 → EMEROO 10:35 → 3BNU 17:32
PROVIDERS: ADMIT Internal Medicine Cardiovascular Disease; ATTEND Registered Nurse